=== PATIENT | female | born 1975 | race Caucasian/White ===

== ENCOUNTER 2019-07-14 06:10 | Day surgery (SDC) | payer OTHER ==
[~2019-07-14] VITALS: Ht 160 cm; Wt 72.6 kg
[2019-07-14] MEDS ORDERED: PHENYLEPHRINE 1% 15 ML BTL NS ONE ×3 (07:26→08:54)
[2019-07-14] MEDS ORDERED: LIDOCAINE/EPI MPF 1%1:200000 30 ML VIAL INJ ONE (07:26)
[2019-07-14] MEDS ORDERED: NEOMYCIN/POLYMYXIN/BACITRACIN OIN 15 GM TUBE TP ONE ×2 (07:26→07:28)
[2019-07-14] MEDS ORDERED: ONDANSETRON 4 MG/2 ML VIAL ONE (07:45)
[2019-07-14] MEDS ORDERED: SEVOFLURANE 250 ML BTL INH ONE (07:45)
[2019-07-14] MEDS ORDERED: hydrALAZINE 20 MG/ML VIAL ONE (07:45)
[2019-07-14] MEDS ORDERED: DEXAMETHASONE 4 MG/ML VIAL ONE (07:45)
[2019-07-14] MEDS ORDERED: CLINDAMYCIN 600 MG/4 ML VIAL ONE (07:47)
[2019-07-14] MEDS ORDERED: LACTATED RINGERS 1,000 ML IV SCH (09:12)
[2019-07-14] MEDS ORDERED: PROMETHAZINE 25 MG/ML VIAL IVP PRN (09:15)
[2019-07-14] MEDS ORDERED: guaiFENesin DM 200/20 MG-10 ML 10 ML UDC PO PRN (09:15)
[2019-07-14] MEDS ORDERED: ACETAMIN/CODEINE 120/12MG-5ML 5 ML UDC PO PRN (09:15)
[2019-07-14] MEDS ORDERED: MEPERIDINE 50 MG/ML SYR IVP PRN (09:15)
[2019-07-14] MEDS ORDERED: HYDROmorphone 1 MG/ML AMP IVP PRN (09:15)
[2019-07-14] MEDS ORDERED: ONDANSETRON 4 MG/2 ML VIAL IVP PRN (09:15)
[2019-07-14] MEDS ORDERED: MEPERIDINE 25 MG/ML SYR IVP PRN (09:15)
[2019-07-14] MEDS: HYDROmorphone PFS 2 MG/ML SYR ONE ×2 (09:43→09:53)
== END 2019-07-14 12:25 | disposition home or self-care (01) ==
LOC: MDS 06:10 → MMU 06:14 → MDS 12:25
PROVIDERS: ATTEND Otolaryngology
DX: J34.2 Deviated nasal septum (principal); J34.3 Hypertrophy of nasal turbinates; J33.8 Other polyp of sinus; Z88.8 Allergy status to other drugs, medicaments and biological substances
CPT/HCPCS: 30140; 30520; 30999; 31237; J0360; J1100; J1170; J2001; J2405; J3490; J7120